=== PATIENT | male | born 1960 | race Caucasian/White ===

== ENCOUNTER → 2019-11-16 08:11 | Outpatient (CLI) | payer OTHER, SELFPAY ==
--- NOTE | ~2019-11-16 | MR_ITS ---
EXAMINATION: MR shoulder LT wo con DATE: 11/16/2019 09:01 INDICATION: Left shoulder pain. TECHNIQUE: Magnetic resonance imaging (MRI) of the left shoulder was performed without intravenous co ntrast. Sequences included axial PD-weighted FS FSE, coronal oblique PD-weighted FS FSE and T2-weight ed FS FSE, and sagittal oblique T2-weighted FS FSE and T1-weighted FSE. COMPARISON: None. FINDINGS: Coracoacromial arch: The acromion undersurface is curved in morphology with anterior hook (type III). There is moderate ac romioclavicular joint osteoarthritis including inferiorly directed osteophytes. There is mild subacro mial/subdeltoid bursitis. Rotator cuff: There is moderate supraspinatus tendinopathy and mild infraspinatus tendinopathy. Teres minor tendon is normal. Subscapularis tendon is normal. There is no asymmetric fatty atrophy of the rotator cuff m uscle bellies. Biceps tendon and glenoid labrum: Biceps tendon is in bicipital groove. Intra-articular biceps tendon is normal. The glenoid labrum is normal. Fluid: There is a small glenohumeral joint effusion. Bones/cartilage: There is cartilage surface irregularity of glenoid. Humeral head cartilage is normal. IMPRESSION: 1. Moderate rotator cuff tendinopathy. No tear. 2. Mild glenoid chondrosis. 3. Moderate acromioclavicular joint osteoarthritis. 4. Small glenohumeral joint effusion. 5. Mild subacromial/subdeltoid bursitis. Reviewed, dictated and finalized at location [facility]. [facility]
== END ==
PROVIDERS: PCP Orthopaedic Surgery; Visit Provider Internal Medicine
DX: M19.012 Primary osteoarthritis, left shoulder (principal); M25.412 Effusion, left shoulder; M75.52 Bursitis of left shoulder
CPT/HCPCS: 73221

== ENCOUNTER 2024-07-31 15:10 | Outpatient (CLI) | payer OTHER, SELFPAY ==
--- NOTE | ~2024-07-31 | CT_ITS ---
CT Scan of the Chest without Contrast: Clinical Indication: Lung cancer screening, nicotine dependence Technique: Contiguous sections were acquired throughout the chest without intravenous contrast. Dose reduction technique was used on this scan by utilizing automated exposure control and iterative recon struction technique. The dose-length product (DLP) was 56.15 mGy-cm. COMPARISON: 05/30/2018 Findings: There is no evidence of any significant mediastinal, hilar or axillary lymphadenopathy. There is appa rent extensive pericardial calcification. There is no evidence of pleural or pericardial effusion. There is severe emphysema. There are probable chronic peripheral scarring or chronic atelectasis at t he anteromedial right middle lobe. There are probable chronic scarring and architectural distortion i n the left upper lobe. There is a focal somewhat nodular area measuring 1.5 cm in diameter (axial sajan ge 38), though this is suspected to reflect scarring rather than true nodule. There is additional chr onic scarring and architectural distortion the lingula as well as at the left lower lobe. Images through the upper abdomen reveal no abnormalities. Impression: Lung RADS 4A: Suspicious. 1.5 cm nodular area has morphology and surrounding findings most suggestive of chronic scarring/architectural distortion. Follow-up CT scan in 3 months advised to assure stabil ity. PET/CT could be considered to evaluate for hypermetabolic activity. Underlying severe emphysema with additional bilateral areas of scarring/chronic atelectasis, and arch itectural distortion. Reviewed, dictated and finalized at [facility]. [facility] Impression: Lung RADS 4A: Suspicious. 1.5 cm nodular area has morphology and surrounding fi ndings most suggestive of chronic scarring/architectural distortion. Follow-up CT scan in 3 months advised to assure stability. PET/CT could be considered to evaluate for hypermetabolic activity. Underlying severe emphysema with additional bilateral areas of scarring/chronic atelectasis, and architectural distortion.
== END 2024-07-31 15:11 | disposition home or self-care (01) ==
LOC: MICIMG 15:11
PROVIDERS: PCP Family Medicine; Visit Provider Family Medicine
DX: J43.9 Emphysema, unspecified (principal); Z12.2 Encounter for screening for malignant neoplasm of respiratory organs; Z87.891 Personal history of nicotine dependence
CPT/HCPCS: 71271

== ENCOUNTER 2025-04-28 15:35 | Outpatient (CLI) | payer OTHER, SELFPAY ==
--- NOTE | ~2025-04-28 | CT_ITS ---
CT Scan of the Chest without Contrast: Clinical Indication: Pulmonary nodule Technique: Contiguous sections were acquired throughout the chest without intravenous contrast. Dose reduction technique was used on this scan by utilizing automated exposure control and iterative recon struction technique. The dose-length product (DLP) was 66.17 mGy-cm. COMPARISON: 07/31/2024 Findings: There is no evidence of any significant mediastinal, hilar or axillary lymphadenopathy. Extensive per icardial calcifications present. There is no evidence of pleural or pericardial effusion. There is extensive calcified pleural plaque in the left hemithorax. Stable noncalcified probable pleu ral plaque at the right middle lobe region reversal of pleural thickening or peripheral consolidation . Stable areas of bilateral pulmonary scarring and architectural distortion are present. Stable advan wali emphysematous change in the upper lobes in particular. Images through the upper abdomen reveal no abnormalities. Impression: No acute abnormality. No significant change from prior exam. Stable area of probable nodular scarring in the left upper lobe. Extensive calcified pleural plaque and thickening left hemithorax with additional area of pleural thi ckening or peripheral consolidation in the right middle lobe anteriorly. Extensive bilateral pleural scarring and architectural distortion is unchanged. Advanced upper lobe emphysema is unchanged. Reviewed, dictated and finalized at [facility]. Impression: No acute abnormality. No significant change from prior exam. Stable area of pro bable nodular scarring in the left upper lobe. Extensive calcified pleural plaque and thickening left hemithorax with addition al area of pleural thickening or peripheral consolidation in the right middle l obe anteriorly. Extensive bilateral pleural scarring and architectural distorti on is unchanged. Advanced upper lobe emphysema is unchanged.
--- OUTSIDE RECORDS SUMMARY | 2025-04-28 15:37 | XMS_ITS | Clinical Summary ---
Author Organization [facility] Address [address] [place] [id number] Phone Care Team Providers Care Canine Deputy Name Role Phone Unavailable Primary Care Provider Unavailabl e Medications Multiple Vitamins-Mineral s (MULTIVITAMINS) chewable tablet 1 tab/cap qday 11/08/2013 Active aspirin (ST BRANDON) 81 MG EC tablet 1 tab/cap qday 11/08/2013 Active Active Problems Problem Noted Date Diagnosed Date Proteinuria 11/08/2013 Overview (12/08/2018): Converted unresolved ICD9, potential mismatch. Atrial fibrillation 11/08/2013 Other hypertrophic cardiomyopathy 11/08/2013 Social History Tobacco Use Types Packs/Day Years Used Date Smoking Tobacco: Never Assessed Sex and Gender Information Value Date Recorded Sex Assigned at Not on file Legal Sex Male 8:01 AM MST Gender Identity Not on file Sexual Orientation Not on file Plan of Treatment Not on file
--- OUTSIDE RECORDS SUMMARY | 2025-04-28 15:37 | XMS_ITS | Clinical Summary ---
Author Organization [facility] Address [address] [place] [address] Care Team Providers Care Floor Steward/Stewardess Name Role Phone Sina Mike MD Primary Care Provider [phone] Source Comments [facility],non-owned Affiliates and Associated Physician Practices is amultiple site organization consisting of ambulatory clinics and hospital sitesin [place], [place], [place] and [place]. This disclosure is being madepursuant to the Care Everywhere program and may not contain all information available regarding this patient. Last updated 18.[facility] Medications * Be aware that medications may not be up to date on this document. Alwaysverify current medications with the patient. metoprolol succinate XL 24hr (TOPROL XL) 25 MG tablet Take 25 mg by mouth DAILY. 30 tablet 3 12/29/2016 Active Active Problems Problem Noted Date Diagnosed Date Typical atrial flutter 11/05/2015 Overview (12/25/2017): S/p ablation 2010 Atrial fibrillation 08/19/2014 Other specified postprocedural states 12/13/2013 Chronic obstructive pulmonary disease 12/13/2013 Personal history of other di seases of the circulatory system 12/13/2013 Chronic constrictive pericarditis 11/30/2013 Syncope and collapse 11/14/2013 Family History Medical History Relation Name Comments Heart Disease Maternal Uncle Hypertension Mother Relation Name Status Comments Maternal Uncle Mother Social History Tobacco Use Types Packs/Day Years Used Date Smoking Tobacco: Former Cigarettes Q uit: 10/23/2013 Smokeless Tobacco: Never Alcohol Use Standard Drinks/Week Comments Yes 0 (1 standard drink = 0.6 oz pur e alcohol) Sex and Gender Information Value Date Recorded Sex Assigned at Not on file Legal Sex Male 5:37 PM WAREHOUSE SHIPPING ASSOCIATE Gender Identity Not on file Sexual Orientation Not on file Last Filed Vital Signs Vital Sign Reading Time Taken Comments Blood Pressure 114/70 11/05/2015 2:29 PM WAREHOUSE SHIPPING ASSOCIATE Pulse 68 11/05/2015 2:29 PM WAREHOUSE SHIPPING ASSOCIATE Temperature 37.2 C (99 F) 06/25/2014 1:56 PM CDT Respiratory Rate 16 11/30/2013 8:45 AM WAREHOUSE SHIPPING ASSOCIATE Oxygen Saturation 97% 11/05/2015 2:29 PM WAREHOUSE SHIPPING ASSOCIATE Inhaled Oxygen Concentration - - Weight 64.4 kg (142 lb) 11/05/2015 5:00 PM WAREHOUSE SHIPPING ASSOCIATE Height 180.3 cm (5' 11) 11/05/2015 5:00 PM WAREHOUSE SHIPPING ASSOCIATE Body Mass Index 19.8 11/05/2015 5:00 PM WAREHOUSE SHIPPING ASSOCIATE Plan of Treatment Health Maintenance Due Date Last Done Comments COLOGUARD (AGES 45-75) - COL ON CA SCREENING 1960 COLON MONITORING 1960 COLONOSCOPY - COLON CA SCREENING 1960 CT COLONOGRAPHY - COLON CA SCREENING 1960 Colorectal Cancer Screening 1960 FIT - COLON CA SCREENING 1960 FLEX SIG - COLON CA SCREENING 1960 HIV SCREENING 1975 HEPATITIS C SCREENING 11/07/1978 DTAP/TDAP/TD VACCINES (1 - Tdap) 1979 PNEUMOCOCCAL VACCINE 50+ (1 of 1 - PCV) 2010 ZOSTER VACCINE (1 of 2) 2010 LIPID TESTING 2018 2013 COVID-19 VACCINE (1 - 2023-2 5 season) 2024 DEPRESSION SCREENING 09/25/2024 INFLUENZA VACCINE (#1) 2025 Respiratory Syncytial Virus (RSV) Vaccine Pt: or over 60 yrs (1 - 1-dose 75+ series) 2035 HEPATITIS B VACCINE Aged Out No longe r eligible based on patient's age to complete this topic HIB VACCINE Aged Out No longer eligi ble based on patient's age to complete this topic HPV VACCINE Aged Out No longer eligi ble based on patient's age to complete this topic MENINGOCOCCAL (Group B) VACC INE SHARED DECISION-MAKING Aged Out No longer eligibl e based on patient's age to complete this topic MENINGOCOCCAL GROUPS A/C/Y/W VACCINE Aged Out No longer eligible b ased on patient's age to complete this topic Procedures Procedure Name Priority Date/Time Associated Diagnosis Comments LIPID PROFILE Routine 2013 12:50 AM WAREHOUSE SHIPPING ASSOCIATE from Last 3 Months or Most Recently Relevant to Health Maintenance Results * (ABNORMAL) LIPID PROFILE (2013 12:50 AM WAREHOUSE SHIPPING ASSOCIATE) Cholesterol Total 129 <200 mg/dL [facility] HDL 39(L) > OR = 40 mg/dL [facility] Comment: ATP III classification of HDL cholesterol: <40 mg/dL Low; considered a major risk factor >60 mg/dL High; considered a negative risk factor Triglycerides 54 <150 mg/dL [facility] Comment: ATP III classification of Triglycerides: < 150 mg/dL Normal triglycerides 150-199 mg/dL Borderline-high triglycerides 200-400 mg/dL High triglycerides > 500 mg/dL Very high triglycerides LDL Calculated 79 0 - 100 mg/dL [facility] Comment: ATP III classification of LDL cholesterol: <100 mg/dL Optimal 100-129 Near optimal/above optimal 130-159 Borderline high 160-189 High >190 Very high Venous blood specimen (specimen) 2013 12:50 AM WAREHOUSE SHIPPING ASSOCIATE 2013 12:57 AM WAREHOUSE SHIPPING ASSOCIATE Narrative [facility] - 2013 2:06 AM WAREHOUSE SHIPPING ASSOCIATE IS PATIENT ON HEPARIN? (Y OR N) N Tests Added on:CBCD Add On per General Requisition to specimen #117 us Deanna Yee MD LAB - CHEMISTRY ORDERABLES Fin al Result [address] [phone] from Last 3 Months or Most Recently Relevant to Health Maintenance Care Teams Floor Steward/Stewardess Relationship Specialty Start Date End Date Sina Mike MD [address] [place] [address] PCP - General 11/10/13
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
--- OUTSIDE RECORDS SUMMARY | 2025-04-28 15:37 | XMS_ITS | Referral Summary ---
Author Organization [facility] Address [address] [place] [address] Care Team Providers Care Ethanol Operator Name Role Phone Marino Nunes NP Primary Care Provider Allergies No known active allergies Medications aspirin [...] BID -Continue vitamin supplementation -RTC 1 week Social History Tobacco Use Types Packs/Day Years Used Date Smoking Tobacco: Every Day Cigarettes Smokeless Tobacco: Never Personal Safety Answer Date Recorded Getting School Help Needed Not on file 12/08 Sex and Gender Information Value Date Recorded Sex Assigned at Not on file Legal Sex Male 5:47 PM INSURANCE DEFENSE PARALEGAL Gender Identity Not on file Sexual Orientation [...] on file Insurance [employer] Care Teams Ethanol Operator Relationship Specialty Start Date End Date Marino Nunes NP PCP - General Nurse Practitioner 03/05/19
--- OUTSIDE RECORDS SUMMARY | 2025-04-28 15:37 | XMS_ITS | Clinical Summary ---
Author Organization [facility] Address [address] [place] [address] Care Team Providers Care Metal Drawer Name Role Phone Unavailable Primary Care Provider Unavailabl e Social History Tobacco Use Types Packs/Day Years Used Date Smoking Tobacco: Never Assessed Sex and Gender Information Value Date Recorded Sex Assigned at Not on file Legal Sex Male 7:15 PM CDT Gender Identity Not on file Sexual Orientation Not on file Plan of Treatment Health Maintenance Due Date Last Done Comments Colorectal Cancer Screening Colonoscopy (10 Years) 1960 Annual Physical 1963 Hepatitis C 1978 DTaP, Tdap and Td Vaccines ( 1 - Tdap) 1979 Pneumococcal Vaccine: 50+ Ye ars (1 of 1 - PCV) 2010 Zoster Vaccines (1 of 2) 2010 COVID-19 Vaccine ( - 2023-2 5 season) 2024 RSV Immunization or 60+ Years (1 - 1-dose 75+ series) 2035 Meningococcal B Vaccine Aged Out No l onger eligible based on patient's age to complete this topic Meningococcal Vaccine Aged Out No jose maria cassi eligible based on patient's age to complete this topic RSV Immunizations Under 20 Months Aged Out No longer eligible based on patient's age to complete this topic
== END 2025-04-28 15:36 | disposition home or self-care (01) ==
PROVIDERS: PCP Family Medicine; Visit Provider Family Medicine
DX: R91.1 Solitary pulmonary nodule (principal); J43.9 Emphysema, unspecified; J92.9 Pleural plaque without asbestos
CPT/HCPCS: 71250